=== PATIENT | female | born 1985 | race Caucasian/White ===

== ENCOUNTER 2019-05-13 02:49 | Emergency (ER) | payer OTHER ==
[~2019-05-13] VITALS: Ht 165.1 cm; Wt 59.0 kg
[2019-05-13] MEDS ORDERED: CHLORDIAZEPOXIDE HCL 25 MG CAPSULE PO ONE (03:00)
[2019-05-13] MEDS ORDERED: ONDANSETRON 4 MG TAB.RAPDIS SL ONE ×3 (03:00→05:00)
[2019-05-13] MEDS ORDERED: CHLORDIAZEPOXIDE HCL 25 MG CAPSULE ONE (03:15)
[2019-05-13] MEDS ORDERED: ONDANSETRON 4 MG TAB.RAPDIS ONE ×2 (03:15→04:16)
--- NOTE | 2019-05-13 03:22 | NUR ---
PT BIB EMS C/O ANXIETY AND TREMORS. PT STATES SHE WENT TO A [facility] AND DID NOT RECEIVE THE HELP SHE NEEDED. AAOX3. PT IS BREATHING EVENLY AND UNLABORED. NO SOB. AMBULATORY. PATIENT PLACED IN BED 12. CONNECTED TO MONITOR.
[2019-05-13] MEDS ORDERED: LORAZEPAM 1 MG TABLET PO ONE ×2 (04:00→08:30)
[2019-05-13] MEDS ORDERED: LORAZEPAM 1 MG TABLET ONE ×2 (04:11→08:10)
--- NOTE | 2019-05-13 04:15 | NUR ---
PATIENT STATES THAT SHE FEELS NAUSEOUS. MD NOTIFIED, ORDERS RECEIVED TO GIVE ZOFRAN 4MG SUBLINGUAL. ORDERS WILL BE CARRIED OUT.
--- NOTE | 2019-05-13 05:26 | NUR ---
TERRELL FOR PICKUP AT 7AM. SPOKE W/ GIVING TREE PERSONEL.
--- NOTE | 2019-05-13 08:13 | NUR ---
Patient discharged to home in stable condition. Written and verbal after care instructions given. Patient verbalizes understanding of instruction.
[2019-05-13 08:14] VITALS: BP 118/68
== END 2019-05-13 08:16 | disposition home or self-care (01) ==
LOC: ER 03:38
DX: F41.9 Anxiety disorder, unspecified (principal); R11.0 Nausea; F10.10 Alcohol abuse, uncomplicated; F17.200 Nicotine dependence, unspecified, uncomplicated; Y90.9 Presence of alcohol in blood, level not specified
CPT/HCPCS: 99284; Q0162 ×2